=== PATIENT | female | born 1945 | race Caucasian/White ===

== ENCOUNTER 2017-11-05 06:21 | Day surgery (SDC) | payer MEDICARE ==
[~2017-11-05] VITALS: Ht 165.1 cm; Wt 80.7 kg
[~2017-11-05 06:21] MED LIST: BUPR-47 PO; BUSP15TA3 PO; CLON0.5T4 PO; FENT-77 TD; FOLI1TAB15 PO; FURO40TA5 PO; HYDROMORPHONE PO; LEVO25TA54 PO; METO25TA6 PO; PRED10TA3 PO; PRED5TAB PO; PREG25 PO; SERT100T12 PO; TYL3B PO
[2017-11-05] MEDS ORDERED: SODIUM CHLORIDE 0.9% 1000ML 1,000 ML IV ONE (06:49)
[2017-11-05 07:07] VITALS: BP 104/54
[2017-11-05 07:27] LABS: INR 0.91 (0.85-1.15); PROTHROMBIN TIME 9.6 SEC (9.6-11.6)
[2017-11-05] MEDS ORDERED: PROPOFOL 10 MG/ML 20ML VIAL IV ONE (08:05)
[2017-11-05 08:18] VITALS: BP 108/55
== END 2017-11-05 08:50 ==
LOC: SUH 06:21 → DAH 06:21 → SUH 08:50
PROVIDERS: ATTEND Internal Medicine Gastroenterology
DX: K31.84 Gastroparesis (principal); K50.90 Crohn's disease, unspecified, without complications; K21.9 Gastro-esophageal reflux disease without esophagitis; G43.909 Migraine, unspecified, not intractable, without status migrainosus; I10 Essential (primary) hypertension; I48.91 Unspecified atrial fibrillation; E03.9 Hypothyroidism, unspecified; E78.5 Hyperlipidemia, unspecified; F32.9 Major depressive disorder, single episode, unspecified; Z86.73 Personal history of transient ischemic attack (TIA), and cerebral infarction without residual deficits; Z86.718 Personal history of other venous thrombosis and embolism; Z90.710 Acquired absence of both cervix and uterus; Z98.890 Other specified postprocedural states; Z88.1 Allergy status to other antibiotic agents; Z88.8 Allergy status to other drugs, medicaments and biological substances; Z88.2 Allergy status to sulfonamides
CPT/HCPCS: 36415; 43235; 85610; 93005; A4606; J2704; J7030

== ENCOUNTER → 2017-11-30 | Outpatient (CLI) | payer MEDICARE ==
[~2017-11-30] MED LIST changes: -HYDROMORPHONE PO
== END | disposition home or self-care (01) ==
LOC: RAH 10:35
PROVIDERS: ATTEND Internal Medicine Gastroenterology
DX: R10.9 Unspecified abdominal pain (principal); R14.0 Abdominal distension (gaseous); R11.0 Nausea
CPT/HCPCS: 78264; A9541

== ENCOUNTER 2018-08-10 13:04 | Emergency (ER) | payer MEDICARE ==
[~2018-08-10 13:04] MED LIST changes: +CLON0.5T12 PO; -CLON0.5T4 PO
[2018-08-10] MEDS ORDERED: OCTYL 2-CYANOACRYLATE 1 EACH TP ONE ×2 (13:43→16:42)
[2018-08-10] MEDS ORDERED: TETANUS/DIPHTHERIA TOXOID [ADULT] 0.5 ML VIAL IM ONE (14:00)
== END 2018-08-10 17:08 | disposition home or self-care (01) ==
LOC: EDH 13:04
DX: S81.812A Laceration without foreign body, left lower leg, initial encounter (principal); S51.012A Laceration without foreign body of left elbow, initial encounter; R42 Dizziness and giddiness; I10 Essential (primary) hypertension; M79.7 Fibromyalgia; G89.29 Other chronic pain; Z88.0 Allergy status to penicillin; Z88.2 Allergy status to sulfonamides; Z88.1 Allergy status to other antibiotic agents; Z88.8 Allergy status to other drugs, medicaments and biological substances; Z90.710 Acquired absence of both cervix and uterus; Z87.891 Personal history of nicotine dependence; Z98.890 Other specified postprocedural states; W01.198A Fall on same level from slipping, tripping and stumbling with subsequent striking against other object, initial encounter; Y93.01 Activity, walking, marching and hiking; Y92.89 Other specified places as the place of occurrence of the external cause; Y99.8 Other external cause status
CPT/HCPCS: 12005; 70450; 90471; 90714